=== PATIENT | female | born 1940 | race Caucasian/White ===

== ENCOUNTER 2018-10-28 16:45 | Inpatient (IN) ==
--- NOTE | 2018-10-28 20:44 | HISTORY AND PHYSICAL ---
REASON FOR ADMISSION: Persistent hypotension. HISTORY OF PRESENT ILLNESS: Ms. Lexi Escobedo is a 78-year-old, woman who was discharged from our facility 2 or 3 weeks ago for orthostatic hypotension and was diagnosed as having adrenal insufficiency. She also carries a diagnosis of COPD, hyperlipidemia, hypertension, hypothyroidism and an incidental finding of recent CT scan showing a right basal ganglia stroke. She was readmitted to our facility because she went into acute diastolic heart failure secondary to being advised to take increased salt to improve her blood pressure and concomitant use of Florinef. The patient was diuresed -10 L of fluid over the course of 3 days. For us to achieve this feat, we had to put the patient on a [place] drip during her diuresis. After achieving this diuresis, we then weaned her off the [place] drip. Even before and since weaning off [place] drip, systolic blood pressure had been running for the last 48 hours anywhere between 60 and 80 systolic. I felt that because the patient still had warm distal extremities I was pretty much under the impression that her blood pressure medications have been grossly underestimated. She had a very good femoral pulse and just of today we started measuring blood pressure from her thigh, and we have been getting very good readings, between 116 to 130 systolic. We had also increased the dose of the patient midodrine, which she was discharged with 3 weeks ago. Her stay was complicated with complaints of shortness of breath and we had started her on some breathing treatments. We had done a CT scan of the head because the patient had a syncopal episode on day 2 of her admission when for some inexplicable reason her [place] drip ran out. Her syncopal spell only lasted 5 seconds. We did a CTA of the head and neck to rule out vertebral basilar insufficiency, but there was no significant flow-limiting lesion of her four vessels and intracranial arterial vascular system. We did note an incidental basal ganglia infarct. As a consequence of this, the patient was started on aspirin and statins. Today her H and H dropped from 8 and 26 to 6 and 20. The patient has received 2 units of packed red blood cells. The patient's main complaint today was that she feels weaker than she has in the last few days and even trying to sit up from a lying position makes her feel dizzy. This also corresponded with a precipitous drop in her H and H. She still has chronic dyspnea, but it has not worsened and denies any chest pain. REVIEW OF SYSTEMS: The patient just complained this evening prior to her transfer that she is having what is considered to be some dark stools, and these were heme-positive. This may explain the precipitous drop in her H and H. The patient's reticulocyte count was 6%, which is consistent with good bone marrow turnover. Otherwise, review of systems is grossly unremarkable, and she has no other complaints other than the dizziness and weakness. ALLERGIES: No known allergies. FAMILY HISTORY: Please see the accompanying at H and P done by me less than a week ago. SOCIAL HISTORY: Please see the accompanying at H and P done by me less than a week ago. SURGICAL HISTORY: Please see the accompanying at H and P done by me less than a week ago. LABORATORY DATA: Today, BMP was within normal limits. H and H were 5.9 and 20. Her lab work is pending in [place]; however, she has some labs that were done. Echocardiogram was done, which showed EF of 55% to 60% with sclerotic aortic valve, moderate TI and moderate MR. She also had a CT of the head and neck, and findings are noted as above in my HPI. She had a CT of the chest, which showed a 1.8 cm lesion, which is suspicious for primary lung neoplasm versus metastatic disease. Her abdomen only showed some mild impaction of stool. CURRENT MEDICATIONS: Patient is on DuoNeb q.4 p.r.n., hydrocortisone 20 mg in the morning and 10 mg in the evening, Lipitor 20 mg daily, Milk of Magnesia 30 mL p.r.n., saline nasal spray q.4 p.r.n., Tylenol 650 q.6, Zofran q.4 p.r.n., aspirin 81 mg daily, but this will now be held in light of possible GI bleed, midodrine 5 mg 3 times a day. PHYSICAL EXAMINATION: VITAL SIGNS: Most recent vital signs done at 6 p.m. in [place]: Blood pressure 137/57, respiratory rate 16, temperature is 98, O2 saturation 98% on room air on 2 L. GENERAL: She is a chronically ill, elderly, woman who is thin, alert and oriented to person, place, and time with somewhat sad affect and depressed mood. HEAD: Normocephalic, atraumatic. EYES: PERRL, EOMI. She is anicteric and pale. ENT: Oropharyngeal exam is grossly normal. No oropharyngeal exudates. No central cyanosis. NECK: Supple. No JVD or carotid bruit. No thyromegaly. CHEST: Has significantly decreased air entry in both lung elizalde. CARDIOVASCULAR: First and second heart sounds are heard. No gallops. There is a 2 to 3/6 ejection systolic murmur heard in the left lateral sternal border. Rhythm is regular. ABDOMEN: Full, soft with no focal areas of tenderness. Bowel sounds are hypoactive. RECTAL: Deferred at this time. EXTREMITIES: Patient has significantly diminished distal pulses volumes, although the more proximal pulsations are full, regular and symmetrical. No edema, clubbing or peripheral cyanosis. NEUROLOGICAL: No gross focal deficits. No tremors. SKIN: Pallid, otherwise no breakdown lesions or erythema. MUSCULOSKELETAL: Exam grossly normal. Patient has some mild to moderate degree of sarcopenia. ASSESSMENT: 1. Probable gastrointestinal bleed secondary to concomitant use of aspirin for cerebrovascular accident prophylaxis and Solu-Cortef. 2. Chronic obstructive pulmonary disease, mild exacerbation. 3. Microcytic anemia, possible myelodysplastic syndrome. Cannot rule out a myelophthisic process. 4. Adrenal insufficiency. 5. Hypothyroidism. 6. Hyperlipidemia. 7. Chronic diastolic heart failure. 8. Peripheral arterial disease. 9. Reflux disease. PLAN: I will start patient on high-dose PPIs, consult GI to see. Scope patient in the morning. As I stated earlier, patient has received 2 units of packed red blood cells. We will get a baseline CBC on arrival, a BNP. Aspirin will be discontinued, and we will see if we can decrease the dose 1/2 of current dose of Solu-Cortef being that her BP is improving and stave off potential risk of fluid overload and GI bleed . The patient wasseen by Dr. Guillermina Nath less than a week ago because of her recurrent chronic macrocytic anemia. So far, workup is negative for hemolytic source. It is very probable that this may be either some yet to be diagnosed bone marrow disorder, which the patient says she was told she had many years ago. This could also be due to a nutritional deficiency. Still have copper levels pending and zinc levels pending and vitamin B1, 2 and 6 levels pending. She also needs NASEEM levels checked and methylmalonic acid level to be ordered. May suggest a flow cytometry study for lymphoproliferative disorder. Patient's incidental finding of a right upper lobe possible neoplastic process will warrant a pulmonology consult. A CEA level was drawn at [place], but this has not been resulted yet. If the patient is willing to undergo invasive procedures, she may benefit from an outpatient PET scan. The patient's blood pressure has improved. The patient's blood pressure can be falsely underestimated if using the usual sites for measuring BP. He had to use a large cuff to measure her blood pressure from her thigh to get a more accurate blood pressure. If blood pressure holds and she is orthostatic, may consider discontinuing midodrine. Baby aspirin can be restarted at a much later date following endoscopic evaluation. Addendum I reevaluated pt. again in the ICU, her BP 116/70. She still has expiratory wheezes and has increased distal pulses of the LE,but not UE. Her pallor has improved and she feels much better after transfusion. Her H/H is 10/32. Explained to her CT findings and the need for her to have rn peritoneal dialysis to see about this. S cc: MD Asia Streeter MD Heather Shah, MD MTDD
[2018-10-28] MEDS ORDERED: TYLENOL PO PRN (21:28)
[2018-10-28] MEDS ORDERED: ZOFRAN IV PRN (21:28)
[2018-10-28 21:55] LABS: BASO# 0.02 X1000 (0.0-0.2); BASO% 0.3 % (0.0-0.8); EOS# 0.12 X1000 (0.0-0.7); EOS% 1.8 % (0.0-10.0); HEMATOCRIT 32.5 % (37.0-47.0); HEMOGLOBIN 10.3 g/dL (12.0-16.0); IMM GRAN# 0.02 X1000 (0.0-0.04); IMM GRAN% 0.3 % (0.0-0.5); LYMPH# 0.89 X1000 (1.2-3.4); LYMPH% 13.1 % (20.5-51.1); MCH 30.3 PG (27-31); MCHC 31.7 g/dL (33-37); MCV 95.6 FL (81-99); MONO# 0.89 X1000 (0.11-0.59); MONO% 13.1 % (1.7-9.3); MPV 9.5 FL (7.4-10.4); NEUT# 4.86 X1000 (1.4-6.5); NEUT% 71.4 % (42.2-75.2); PLT 350 X1000 (130-400); RDW 15.6 % (11.5-14.5)
[2018-10-28 22:18] LABS: AGAP 11; ALB/GLOB RATIO 1.5; ALBUMIN 3.6 g/dL (3.5-5.0); ALKALINE PHOSPHATASE 55 U/L (32-104); BUN 12 mg/dL (8-22); CALCIUM 9.2 mg/dL (8.8-10.2); CHLORIDE 94 mmol/L (98-107); COSMO 272; CREATININE 0.5 mg/dL (0.5-0.9); ESTIMATED GFR > 60; GLUCOSE 112 mg/dL (70-104); GOT 12 U/L (10-30); GPT 9 U/L (10-36); POTASSIUM 3.4 mmol/L (3.5-5.1); SODIUM 136 mmol/L (136-145); TCO2 31 mmol/L (25-35); TOTAL BILIRUBIN 0.23 mg/dL (0.20-1.00)
[2018-10-28] MEDS: PROTONIX IV SCH (22:25)
[2018-10-28] MEDS: LIPITOR PO SCH (22:26)
[2018-10-28] MEDS: NS 1,000 ML IV SCH (22:26)
[2018-10-28] MEDS: SODIUM CHLORIDE 0.9% INJ SCH (22:26)
[2018-10-28] MEDS ORDERED: POTASSIUM CHLORIDE 20% LIQUID PO ONE (22:33)
[2018-10-28] MEDS: DUONEB (A & A) INH SCH (22:43)
[2018-10-28] MEDS: CORTEF PO SCH ×2 (22:46→23:38)
[2018-10-28] MEDS ORDERED: CORTEF PO ONE (22:55)
[2018-10-28] MEDS: PROAMATINE PO SCH (23:36)
[2018-10-29] MEDS: DUONEB (A & A) INH SCH ×4 (03:17→21:53)
[2018-10-29 06:58] LABS: HEMATOCRIT 33.6 % (37.0-47.0); HEMOGLOBIN 10.7 g/dL (12.0-16.0); MCH 30.4 PG (27-31); MCV 95.5 FL (81-99); RBC 3.52 XMIL (4.2-5.4); WBC 13.46 X1000 (4.8-10.8)
[2018-10-29 06:59] LABS: BASO# 0.03 X1000 (0.0-0.2); BASO% 0.2 % (0.0-0.8); EOS# 0.15 X1000 (0.0-0.7); EOS% 1.1 % (0.0-10.0); LYMPH% 4.5 % (20.5-51.1); MCHC 31.8 g/dL (33-37); MONO# 1.13 X1000 (0.11-0.59); MONO% 8.4 % (1.7-9.3); MPV 10.6 FL (7.4-10.4); NEUT# 11.55 X1000 (1.4-6.5); NEUT% 85.8 % (42.2-75.2); PLT 340 X1000 (130-400); RDW 15.8 % (11.5-14.5)
[2018-10-29 07:11] LABS: AGAP 10; BUN 12 mg/dL (8-22); CALCIUM 8.9 mg/dL (8.8-10.2); CHLORIDE 95 mmol/L (98-107); COSMO 275; CREATININE 0.6 mg/dL (0.5-0.9); ESTIMATED GFR > 60; GLUCOSE 97 mg/dL (70-104); MAGNESIUM 2.6 mg/dL (1.5-2.7); SODIUM 138 mmol/L (136-145); TCO2 33 mmol/L (25-35)
[2018-10-29 08:26] LABS: LYMPHS 6 % (21-51); MONO 10 % (1-9); SEGS 84 % (42-75)
[2018-10-29] MEDS: PROAMATINE PO SCH ×4 (08:44→23:02)
[2018-10-29] MEDS: CORTEF PO SCH ×2 (08:44→20:49)
[2018-10-29] MEDS ORDERED: CORTEF PO SCH (09:00)
[2018-10-29] MEDS ORDERED: XYLOCAINE-MPF 2% ONE (09:27)
[2018-10-29] MEDS ORDERED: DIPRIVAN 1% ONE (09:27)
--- NOTE | 2018-10-29 10:26 | ENDOSCOPY OPERATIVE NOTE ---
[facility] ENDOSCOPY OPERATIVE NOTE , PATIENT: Lexi Escobedo ADMISSION DATE: 10/29/2018 MR#: [id number] : 1940 [id number] EGD PROCEDURE REPORT PROCEDURE DATE: 10/29/2018 SURGEON: Yosef Juares MD STATUS: inpatient TELEVISION STATION MANAGER: PREOPERATIVE DIAGNOSIS: The patient is a 78 yr old female here for an EGD due to anemia. PROCEDURE PERFORMED: EGD w/ control of bleeding MEDICATIONS: Per Anesthesia TOPICAL ANESTHETIC: none CONSENT: The patient understands the risks and benefits of the procedure and understands that these r isks include, but are not limited to: sedation, allergic reaction, infection, perforation and/or bleeding. Alternative means of evaluation and treatment include, among others: physical exam, x-rays, and/or surgical intervention. The patient elects to proceed with this endoscopic procedure. HISORY AND PHYSICAL: 10/29/2018 function. Hand hygiene and appropriate measures for infection prevention was taken. After the risks, benefits and alternatives of the procedure were thoroughly explained, Informed consent was verified, confirmed and timeout was successfully executed by the treatment team. The patient was anesthetized with topical anesthesia and the WD82-[id number] ([id number]) endoscope was introduced through the mouth and advanced to the second portion of the duoden um. Retroflexion was performed in the stomach and revealed a hiatal hernia. The gastroscope was then slowly withdrawn and removed. ESOPHAGUS: The mucosa of the esophagus appeared normal. STOMACH: The stomach was normal. DUODENUM: A small diverticulum was found in the 2nd part of the duodenum. A small (5mm) bleeding an gioectasia was found in the 2nd part of the duodenum along the posterior sweep. Submucosal injection of 3ml of epin ephrine 1:10,000 was performed around the bleeding site and cautery applied with monopolar probe with complete hemosta sis achieved. SPECIMENS REMOVED: No ADVERSE EVENTS: There were no complications. POSTOPERATIVE DIAGNOSIS: ESOPHAGUS: The mucosa of the esophagus appeared normal. STOMACH: The stomach was normal. DUODENUM: A small diverticulum was found in the 2nd part of the duodenum. A small (5mm) bleeding an gioectasia was found in the 2nd part of the duodenum along the posterior sweep. Submucosal injection of 3ml of epin ephrine 1:10,000 was performed around the bleeding site and cautery applied with monopolar probe with complete hemosta sis achieved. RECOMMENDATIONS: Clear liquid diet Trend H/H daily, transfuse prn for goal hgb 7-8 Stop PPI Will follow with you. Please call with questions REPEAT EXAM: Yosef Juares MD eSigned: Yosef Juares MD 10/29/2018 10:25 AM cc: PATIENT NAME: Lexi Escobedo MR#: [id number]
--- NOTE | 2018-10-29 11:38 | GASTROENTEROLOGY CONSULTATION ---
DATE: 10/29/2018 REASON FOR CONSULTATION: Anemia. HISTORY OF PRESENT ILLNESS: Ms. Lexi Escobedo is a 78-year-old woman with past medical history of chronic anemia on iron therapy, CAD status post CABG 6 years ago, recent diagnosis of CVA, COPD, hyperlipidemia, hypothyroidism, adrenal insufficiency, and recent hospitalization for diastolic CHF exacerbation who presented on 10/28 with persistent hypotension in the setting of anemia. The patient was recently admitted for acute diastolic heart failure requiring aggressive diuresis -10 L with significant weight loss after presenting with right basilar ganglia stroke and heart failure in the setting of increased salt intake and Florinef treatment. The patient reports having persistent generalized weakness, dizziness, lightheadedness, and dyspnea on exertion, which she attributes to her anemia. She denies any chest pain or change in bowel habits. No diarrhea. She does report chronic constipation from oral iron therapy, which requires intermittent milk of magnesia use. She had a previous workup with EGD and colonoscopy about [address] Mckeon in [place] for anemia, which was negative. She was told that her anemia was likely secondary to a bone marrow issue, which was was evaluated by a pattern generator operator in the past. She required iron infusions regularly up until about 6 to 8 years ago, and since then she has been on oral iron. She does take aspirin daily, no NSAIDs or other blood thinners. No family history of GI malignancies. REVIEW OF SYSTEMS: As per HPI; otherwise, 12-point review of systems negative. PAST MEDICAL HISTORY: As per HPI. PAST SURGICAL HISTORY: As far as abdominal surgeries, she has had a cholecystectomy, appendectomy and oophorectomy for a tumor. FAMILY HISTORY: No family history of cancer. SOCIAL HISTORY: She is a 1 pack per day smoker up until her admission. No alcohol or drug use. MEDICATIONS: Home medications include Symbicort, Ventolin, levothyroxine, Simbrinza eyedrops, aspirin, pantoprazole, iron, Latanoprost eyedrops, ranitidine, DuoNeb. ALLERGIES: No known drug allergies. PHYSICAL EXAMINATION: Vital Signs: Temperature 97.5 degrees, heart rate of 86, respiratory rate 16, blood pressure 81/56, O2 saturation is 100% on 3 L nasal cannula. General: The patient is awake, alert, oriented, no acute distress. HEENT: Sclerae anicteric. Moist mucous membranes. Extraocular motor intact. Neck: Supple. No JVD or lymphadenopathy. Cardiac: Regular rate and rhythm. No murmurs, rubs or gallops. Lungs: Clear to auscultation bilaterally. Abdomen: Soft, nontender, nondistended. Normoactive bowel sounds. Extremities: She has two heel dressings bilaterally. No clubbing, cyanosis or edema. Neurologic: Nonfocal. LABS: White count of 13.4, hemoglobin 10.7, platelets of 340. BMP is unremarkable today. LFTs on 10/28 were normal. Apparently, prior to admission she had a hemoglobin of 6 requiring 2 units of packed red blood cells prior to admission. ASSESSMENT AND PLAN: Ms. Lexi Escobedo is a 78-year-old woman with past medical history of chronic anemia on iron therapy, who presents with persistent hypotension. She has been treated for adrenal insufficiency with steroids and had a recent admission for diastolic heart failure requiring aggressive diuresis with the help of pressors. She denies any rectal bleeding or melena. She has had a workup in the remote past including EGD and colonoscopy about 10 years ago that was negative. She does take aspirin which has been held. She was seen by Dr. Nath about a week ago for chronic macrocytic anemia and is undergoing workup for bone marrow disorder, which she says she was diagnosed with in the past. She is currently NPO and on a proton pump inhibitor twice daily. We will plan for diagnostic EGD this morning. DDx includes PUD, esophagitis, duodenitis, AVMs; less likely malignancy. She is adamant that she is not interested in diagnostic colonoscopy should her endoscopy return negative. Her blood pressure currently is borderline; however, there has been difficulty obtaining accurate readings. She is awake, alert, and non-toxic appearing. Abdomen is benign. # Acute on chronic anemia # Hypotension # CAD # Adrenal insufficiency Thank you for this consult. We will follow with you. Please call with any questions or concerns. DELMA
--- NOTE | 2018-10-29 16:34 | PROGRESS NOTE ---
DATE: 10/29/2018 SUBJECTIVE: This morning, Ms. Escobedo refers to be feeling fairly weak. She was transferred from [facility] yesterday after she blacked out. She did complain of some dark stool, and she was found to have a dropped her hemoglobin and hematocrit from about 8 to 6. She was given 2 PRBC transfusion, I understand, and she was brought in here. Over here, she has been seen by GI and has been scoped. OBJECTIVE: Vital signs: Her current vitals are blood pressure 134/90, pulse of 85, respiration 19, temperature is 98.6 degrees. General: Ms. Escobedo is a 78-year-old female. She is in bed. No distress. HEENT: Mucosa is pink and moist. Anicteric. Acyanotic. Neck: Neck is supple. Chest: Good air entry bilateral. No crepitations. No rhonchi. Cardiovascular: Regular rate and rhythm. Abdomen: Abdomen is soft. Extremities: No pedal edema. INFORMATICS ANALYST: The patient is awake, alert, and oriented. LABORATORY DATA: WBC is 13.46, hemoglobin is 10.7, platelet count of 340,000. Chemistry is also reviewed which is completely normal. CURRENT MEDICATIONS: The patient's current medications have all been reviewed. She is on hydrocortisone and midodrine. ASSESSMENT: 1. Symptomatic anemia. I understand the patient's hemoglobin and hematocrit dropped to 6, as per the history and physical from [place]. The patient was transfused 2 PRBC. Her hemoglobin and hematocrit at this point is within normal range. 2. 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 The patient is status post EGD with submucosal injection of epinephrine and cautery application with monopolar probe, with complete hemostasis achieved. The patient denies any more dark stool. 3. Hypothyroidism. We will continue with her Synthroid. 4. History of diastolic heart failure. The patient is currently euvolemic. 5. History of peripheral artery disease. Obviously patient is very vasculopathic, and this could also interfere with accurate reading of her blood pressure. 6. Adrenal insufficiency. I understand Ms. Escobedo has been hypotensive for the most part, and laboratory studies in [place] revealed that she had adrenal insufficiency. It appears that being on the steroids, her blood pressures are now a lot better. I think she will need to follow up with an endocrine to have a more comprehensive study since it appears that her thyroid is also insufficient. She probably might have a polyglandular pathology that needs to be examined more closely and thoroughly. 7. History of cerebrovascular accident right basal ganglia infarct. Clinically asymptomatic. 8. History of chronic obstructive pulmonary disease. The patient is currently not in any exacerbation. I understand from the H and P that a CT scan which was done from [place] seems to suggest that there was a 1.8 cm suspicious lesion in the lung, laterality was not mentioned in the H and P. We will get the records itself. I have called our Radiology Department to see if we can get the image itself from [place]. The CT report itself seems to suggest that there is a new evidence of a mass in the right upper lobe along the vascular bundle measuring another 1 cm in the size, and I think that this may be amenable to bronchoscopic evaluation and biopsy. We will get Pulmonary Medicine to see her, and we will also try and see if we can get the images sent from [facility]. The patient is yet to be seen by Pulmonary Medicine and Heme-Onc. cc: Haseeb Rosales MD MTDD
--- NOTE | 2018-10-29 17:15 | HEMO/ONC CONSULTATION ---
DATE: 10/29/2018 ADMITTING PHYSICIAN: Marisa Reynoso MD REQUESTING PHYSICIAN: Marisa Reynoso MD We appreciate this consult. CHIEF COMPLAINT: Iron deficiency anemia. HISTORY OF PRESENT ILLNESS: Ms. Lexi Escobedo is a pleasant, 78-year-old, female, known to Dr. Robbi Reilly with a history of iron-deficiency anemia secondary to recurrent GI bleed. The patient recently experienced a long admission to [facility] secondary to acute diastolic heart failure and fluid overload. The patient was discharged 3 weeks ago. The patient presents to [facility] with complaints of worsening weakness and dizziness. Upon evaluation the patient did have a significant drop in her hemoglobin. Hemoglobin was found to be 10.3 on admission. The patient does have a history of GI bleed and underwent EGD earlier this morning. She was found to have a bleeding angioectasia in the 2nd part of the duodenum which was injected with epinephrine. We are consulted as the patient is known to Dr. Robbi Reilly with a history of iron-deficiency anemia. PAST MEDICAL HISTORY: 1. COPD. 2. Hyperlipidemia. 3. Hypertension. 4. Hypothyroidism. 5. Iron-deficiency anemia. 6. GI bleed. 7. Congestive heart failure. FAMILY HISTORY: The patient has no family history of hematologic or oncologic disease. SOCIAL HISTORY: The patient does not use tobacco, alcohol or illicit drugs. MEDICATIONS ON ADMISSION: 1. DuoNeb. 2. Hydrocortisone. 3. Lipitor. 4. Milk of magnesia. 5. Saline nasal spray. 6. Tylenol. 7. Zofran. 8. Aspirin 81 mg. 9. Midodrine. ALLERGIES: Patient has no known drug allergies. REVIEW OF SYSTEMS: A 14 point review of systems was obtained and is negative except for mentioned in HPI. PHYSICAL EXAMINATION: General: Ms. Lexi Escobedo is a 78-year-old, female lying supine in bed in no immediate distress. Vital Signs: Temperature 98.3, blood pressure 86/65, heart rate 90. Respirations 22, O2 saturation 98% on 3 L nasal cannula O2. HEENT: Normocephalic, atraumatic. Mucous membranes are slightly pale and moist. Sclerae anicteric. Extraocular movements intact. Neck: Supple. Lungs: Clear to auscultation bilaterally. Chest expansion is equal bilaterally. Cardiovascular: S1, S2 is heard without murmur, rub or gallop. Abdomen: Nondistended. Extremities: No clubbing, cyanosis, or edema. Dermatologic: No rashes, bruises or lesions. Neurologic: The patient is awake, alert, oriented x3. She has no focal deficit. LABORATORY DATA: Hemoglobin 10.7, hematocrit 33.6, white blood cell count 13.46, platelets 340,000. Sodium 138, potassium 4.0, chloride 95, CO2 is 33, BUN 12, creatinine 0.6, glucose is 97, calcium 8.9, magnesium 2.6. ASSESSMENT AND PLAN: 1. Iron-deficiency anemia. The patient is known to Dr. Robbi Reilly, with a history of iron deficiency anemia related to recurrent gastrointestinal bleed. 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 We will check iron studies and replete if necessary. 2. 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 3. Chronic obstructive pulmonary disease with mild exacerbation per hospitalist. 4. We will follow along with you and make further recommendations pending outcomes. The above reflects the history, exam, assessment and plan of Dr. Hart. Dictated by JF Wharton for Perry Hart MD cc: JF Wharton MD
--- NOTE | 2018-10-29 19:42 | CONSULTATION ---
DATE OF CONSULTATION: 10/29/2018 REQUESTING PROVIDER: Dr. Farrar. REASON FOR CONSULTATION: Possible right upper lobe mass. HISTORY OF PRESENT ILLNESS: This is a 78-year-old female with a medical history of COPD, tobacco abuse, hyperlipidemia, hypertension, hypothyroidism, iron deficiency anemia, GI bleed, congestive heart failure, peripheral arterial disease, adrenal insufficiency, and history of right basal ganglia stroke. She has been admitted to the [facility] since last Sunday with persistent hypotension. She was transferred to ICU in our facility last night apparently after she blacked out, likely secondary to symptomatic anemia. She received 2 units of red blood cell transfusion before transfer. CT chest, abdomen, and pelvis with and without contrast, on 10/28/2018, revealed a 1.8 cm lesion centrally in the right upper lobe, suspicious for malignancy, either primary or potentially metastatic, with bilateral pleural effusions, COPD with pulmonary fibrotic changes, stable in appearance, and senescent changes, otherwise relatively stable. The patient currently is lying in bed with no acute distress noted. She is on nasal cannula at 3 L. Her sister is at the bedside. She is status post EGD with supple mucosal injection of epinephrine and cautery application with monopolar probe, with complete hemostasis achieved. She reports that she had chronic liquid dark stools which, per patient, is due to liquid diet she has been on for years. She reports generalized weakness, dizziness, dyspnea on exertion, chronic constipation which, per patient, is due to iron supplement and some mild chronic cough which is mainly dry. She reports no chest pain, palpitation, fever, chill, or wheezing. PAST MEDICAL HISTORY: 1. COPD, on nocturnal oxygen for a long time; on Ventolin, p.r.n. DuoNeb, and Symbicort b.i.d. 2. Tobacco abuse. 3. Hyperlipidemia. 4. Hypertension. 5. Hypothyroidism. 6. Iron deficiency anemia. 7. Gastrointestinal bleeding. 8. Congestive heart failure, diastolic. 9. Peripheral arterial disease. 10. Adrenal insufficiency, recently diagnosed. 11. History of right basal ganglia stroke. PAST SURGICAL HISTORY: 1. Abdominal surgeries. 2. Cholecystectomy. 3. Appendectomy. 4. Oophorectomy for tumor. FAMILY HISTORY: Positive for heart problems and diabetes. Reports no history of cancer. SOCIAL HISTORY: The patient smokes 1 pack per day of cigarettes until her admission to [facility]. She started smoking at the age of 14. She reports no history of alcohol or illicit drug use. ALLERGIES: Codeine. REVIEW OF SYSTEMS: A 10-point review of systems was conducted and the pertinent is listed within the HPI, otherwise noncontributory. PHYSICAL EXAMINATION: Vital Signs: Temperature 98.3, blood pressure 160/66, pulse 86, respiratory rate 17, oxygen saturation 97% on nasal cannula at 3 L. General: Lying in bed with no acute distress noted. The patient's sister is at the bedside. HEENT: Atraumatic, normocephalic. Trachea midline. Mucosa pink and moist. Respiratory: Even and unlabored. Symmetrical excursion. Auscultation revealed prolonged expiratory phase with bilateral expiratory wheezing. Cardiovascular: Regular rate and rhythm. Gastrointestinal: Soft, nontender, nondistended. Normoactive bowel sounds in all 4 quadrants. Extremities: No pedal edema. No cyanosis. No clubbing. Dorsalis pedis 2+ bilaterally. Neurologic: Alert and oriented x3. Speech fluent. Follows commands. LAB DATA: White blood cells 13.46, hemoglobin 10.7, hematocrit 33.6, platelets 340,000. Sodium 138, potassium 4.0, chloride 95, carbon dioxide 33, BUN 12, creatinine 0.6, glucose 97. ASSESSMENT: This is a 78-year-old female, with a medical history of chronic obstructive pulmonary disease, tobacco abuse, hyperlipidemia, hypertension, hypothyroidism, iron deficiency anemia, gastrointestinal bleeding, congestive heart failure, peripheral arterial disease, adrenal insufficiency, and history of right basal ganglia stroke. She was transferred from [facility] last night with symptomatic anemia, hypertension, and possible right upper lobe lung mass. 1. Acute on chronic anemia, status post esophagogastroduodenoscopy by Dr. Juares this morning. 2. Shock. Initial blood pressure of 86/65, currently improved. 3. Chronic obstructive pulmonary disease, with some exacerbation. 4. Tobacco abuse. The patient was a daily smoker until her admission to [facility] on 10/23/2018. 5. Right upper lobe 1.8 cm lesion, suspicious for malignancy, with bilateral pleural effusions. 6. Pulmonary fibrotic changes. PLAN: 1. Continue supplemental oxygen. 2. Continue steroid and bronchodilators. Will consider antibiotic. 3. Follow up with CBC and BMP. Consider chest x-ray and ABG if indicated. 4. Consider outpatient PET scan. 5. Daily smoking cessation education. Currently patient states that she is ready to quit smoking. 6. Continue gastrointestinal and deep venous thrombosis prophylaxis. 7. Further recommendations pending hospital course. Thank you for the courtesy of this consult. Dictated by JF Shanks for Lisy Barron MD cc: JF Shanks MD [facility]
[2018-10-29] MEDS: LIPITOR PO SCH (20:50)
[2018-10-29] MEDS: PROTONIX IV SCH (23:03)
[2018-10-29] MEDS: SODIUM CHLORIDE 0.9% INJ SCH (23:04)
[2018-10-29] MEDS: NS 1,000 ML IV SCH (23:04)
[2018-10-30] MEDS: DUONEB (A & A) INH SCH ×4 (03:32→22:12)
[2018-10-30 04:18] LABS: BASO# 0.03 X1000 (0.0-0.2); BASO% 0.4 % (0.0-0.8); EOS# 0.17 X1000 (0.0-0.7); EOS% 2.1 % (0.0-10.0); HEMATOCRIT 34.5 % (37.0-47.0); HEMOGLOBIN 10.7 g/dL (12.0-16.0); LYMPH# 0.79 X1000 (1.2-3.4); LYMPH% 9.7 % (20.5-51.1); MCH 29.8 PG (27-31); MCV 96.1 FL (81-99); MONO% 8.6 % (1.7-9.3); MPV 9.9 FL (7.4-10.4); NEUT# 6.47 X1000 (1.4-6.5); NEUT% 79.2 % (42.2-75.2); PLT 343 X1000 (130-400); RBC 3.59 XMIL (4.2-5.4); RDW 15.2 % (11.5-14.5); WBC 8.16 X1000 (4.8-10.8)
[2018-10-30 04:39] LABS: IRON SATURATION 8 %; TIBC 370 ug/dL; TOTAL IRON 31 ug/dL (49-151); UNBOUND IRON 339 ug/dL (112-346)
[2018-10-30 05:03] LABS: AGAP 13; BUN 11 mg/dL (8-22); CHLORIDE 99 mmol/L (98-107); COSMO 275; CREATININE 0.5 mg/dL (0.5-0.9); ESTIMATED GFR > 60; GLUCOSE 95 mg/dL (70-104); POTASSIUM 4.6 mmol/L (3.5-5.1); SODIUM 138 mmol/L (136-145); TCO2 26 mmol/L (25-35)
[2018-10-30 05:04] LABS: ALBUMIN 3.5 g/dL (3.5-5.0); CALCIUM 8.4 mg/dL (8.8-10.2); PHOSPHORUS 3.8 mg/dL (2.7-4.5)
[2018-10-30 05:13] LABS: CALCIUM 8.2 mg/dL (8.8-10.2); PHOSPHORUS 3.7 mg/dL (2.7-4.5)
[2018-10-30 05:20] LABS: FERRITIN 36 ng/mL (13-150)
[2018-10-30] MEDS: PROAMATINE PO SCH (09:36)
[2018-10-30] MEDS: VENOFER 300 MG in NS 250 ML IV SCH (09:36)
[2018-10-30] MEDS: CORTEF PO SCH ×2 (09:36→21:13)
--- NOTE | 2018-10-30 12:32 | PROGRESS NOTE ---
DATE: 10/30/2018 SUBJECTIVE: This morning, Ms. Escobedo refers to be doing a whole lot better. Denies any new complaints. No dizziness. OBJECTIVE: Vital signs: Blood pressure is 119/62, pulse of 84, respiration is 16, temperature 97.6 degrees. General: Ms. Escobedo is a 78-year-old female. She is in bed in no distress. HEENT: Mucosa is pink and moist. Anicteric. Acyanotic. Neck: Supple. Chest: Good air entry bilaterally. Few crackles posteriorly. Cardiovascular: Regular rate and rhythm. Abdomen: Soft, nontender. Bowel sounds present. Extremities: No pedal edema. Central nervous system: Patient is awake, alert, and oriented. LABORATORY DATA: Hemoglobin is 10.7, same as yesterday. Rest of CBC is unremarkable. Chemistry is completely within normal range. Iron is remarkably deficient. ASSESSMENT: 1. Symptomatic anemia. Patient is status post 2 PRBC transfusion. Hemoglobin and hematocrit is stable. 2. 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 Patient is status post EGD with endoscopic therapy. Hemoglobin this morning is stable and patient is not having any more dark stools. 3. Hypothyroidism. Patient is on Synthroid. 4. History of diastolic heart failure. Patient currently seems euvolemic. 5. History of peripheral vascular disease. 6. Adrenal insufficiency. Patient is on hydrocortisone and has been advised to follow with Endocrine. 7. History of cerebrovascular accident with right basal ganglia infarct. Currently no motor deficit on clinical exams. 8. History of chronic obstructive pulmonary disease, currently not in exacerbation. 9. A right upper lobe 1 cm lesion. The patient has been evaluated by Pulmonary Medicine and I think the recommendation is for outpatient PET scan and workup. 10. Iron deficiency, most likely due to chronic gastrointestinal bleed. PLAN: In general, I think Ms. Escobedo is a lot better. She is normotensive. She is not symptomatic. We are going to transfer her from the ICU to the medical floor, get her to walk around, get the Estrada catheter out. She has been started on a regular diet today. If she continues to be asymptomatic with stable hemoglobin and hematocrit in the morning, I think we will be able to discharge her. cc: Haseeb Rosales MD
[2018-10-30 13:35] LABS: INR 1.08; PROTIME 14.1 Seconds (11.0-16.0); PTT 32.7 Seconds (22.3-41.8)
--- NOTE | 2018-10-30 15:55 | Diag Imaging Result Doc PS360 ---
EXAM: CHEST-2 VIEWS 10/30/2018 HISTORY: POST RIGHT U/S THORACENTESIS TECHNIQUE: Inspiratory expiratory chest COMMENT: There is no evidence of pneumothorax. There is no appreciable right pleural fluid collection. There is a larger left pleural effusion and atelectasis versus pneumonia in the left lower lobe. IMPRESSION: No evidence of pneumothorax. Electronically signed by oRc Antonio 10/30/2018 3:53 PM
--- NOTE | 2018-10-30 16:10 | Diag Imaging Result Doc PS360 ---
EXAM: US THORACENTESIS W/IMAGE GUIDE 10/30/2018 HISTORY: Diagnostic, rule out malignancy TECHNIQUE: Right ultrasound-guided thoracentesis COMMENT: The risks and benefits including the possibility of bleeding, infection, reaction to lidocaine or pneumothorax was discussed with the patient and she agreed to the procedure. Following sterile preparation the skin posterior laterally and administration 1% lidocaine to the skin and deeper soft tissues, a 20-gauge needle was inserted into the inferior lateral pleural space under ultrasonographic guidance and 10 mL of straw-colored fluid was aspirated. This was sent to the laboratory. There are no immediate complications. IMPRESSION: Successful ultrasound-guided thoracentesis. Electronically signed by Roc Antnoio 10/30/2018 4:08 PM
--- NOTE | 2018-10-30 16:38 | Diag Imaging Result Doc PS360 ---
EXAM: CT THORAX W/O CONTRAST HISTORY: High resoltion for navigtional bronch TECHNIQUE: Images were obtained from the lung apices through bases as per standard protocol. This exam was performed using automated exposure control, adjustment of mA or kV according to patient size, and/or use of iterative reconstruction technique. COMPARISON: 10/28/2018. FINDINGS: Mediastinum: There is cardiomegaly with median sternotomy wires.. No pericardial effusion is appreciated. No pathologically enlarged lymph nodes are identified on this noncontrasted study.. No aortic aneurysm. There is atherosclerotic calcification. No hilar lymphadenopathy. Calcified left hilar lymph nodes Airway: No large airway obstruction. No focal mass. Pulmonary parenchyma: There is marked pulmonary emphysema. There is a 1.6 cm noncalcified soft tissue mass posterior right upper lobe. Pleura: There are bilateral pleural effusions left greater than right. Bones: No fracture or destructive lesion is identified. Abdomen: There is a apparent 1 cm stone in the distal common bile duct. Pneumobilia. Possible interval placement of biliary stent. Correlate clinically. Consider abdominal ultrasound. IMPRESSION: 1.1.6 cm mass posterior right upper lobe. 2.Pulmonary emphysema. 3.Bilateral pleural effusions and atelectasis left greater than right. 4.Common bile duct stone. Correlate clinically. . Electronically signed by Radha Villarreal 10/30/2018 4:35 PM
--- NOTE | 2018-10-30 16:43 | PROVIDER PROGRESS NOTE ---
Progress Note S: No acute overnight events. No abdominal pain, rectal bleeding, N/V, melena. O: Last Vital Signs Temp 97.9 F 10/30/18 14:59 Pulse 92 H 10/30/18 14:59 Resp 19 10/30/18 14:59 BP 154/74 10/30/18 14:59 Pulse Ox 96 10/30/18 14:59 Height 5 ft 6 in Weight 130 lb 4.8 oz GEN: awake, alert, NAD HEENT: anicteric, MMM NECK: supple, no jvd PULM: CTAB, no wheezing ABD: soft NT/ND, NABS, no rebound or guarding CV: RRR, no murmurs NEURO: nonfocal LABS: 10/30/18 10/30/18 10/30/18 03:50 03:50 03:50 WBC Hgb Plt Count Sodium Potassium Chloride Carbon Dioxide BUN Creatinine Iron 31 L TIBC 370 % Saturation 8 Unsat Iron Binding 339 Ferritin 36 Albumin Vitamin B12 689 Folate 37.3 H 10/30/18 10/30/18 03:50 03:50 WBC 8.16 Hgb 10.7 L Plt Count 343 Sodium 138 Potassium 4.6 Chloride 99 Carbon Dioxide 26 BUN 11 Creatinine 0.5 Iron TIBC % Saturation Unsat Iron Binding Ferritin Albumin 3.5 Vitamin B12 Folate EGD 10/29 ESOPHAGUS: The mucosa of the esophagus appeared normal. Small hiatal hernia STOMACH: The stomach was normal. DUODENUM: A small diverticulum was found in the 2nd part of the duodenum. A small (5mm) bleeding angioectasia wasfound in the 2nd part of the duodenum along the posterior sweep. Submucosal injection of 3ml of epinephrine 1:10,000 was performed around the bleeding site and cautery applied with monopolar probe with complete hemostasis achieved. A/P: Ms. Lexi Escobedo is a 78-year-old woman with past medical history of chronic anemia on iron therapy, adrenal insufficiency who presented with persistent hypotension. EGD yesterday showed bleeding duodenal AVM s/p epinephrine and cautery. Hgb stable. No melena. # Bleeding duodenal AVM: hgb stable; once daily PPI; advance diet as tolerated # Acute on chronic iron deficiency anemia: received IV iron today # Hypotension: normotensive # CAD: no CP # Adrenal insufficiency: on steroids Will follow with you. Please call with questions
[2018-10-30 16:45] LABS: PH BODY FLUID 7.5; SPECIMEN PLEURAL FLUID
[2018-10-30 16:53] LABS: AMYLASE BODY FLUID 23 U/L; BODY FLUID SOURCE PLEURAL FLUID; TOTAL PROT BODY FLUID < 0.2 g/dL; WBC BF 21 /cumm
[2018-10-30 16:55] LABS: MONOS 90 %; POLYS 10 %
[2018-10-30 17:03] LABS: GLUCOSE BODY FLUID < 2 mg/dL; LDH BODY FLUID < 10 U/L
[2018-10-30] MEDS: LIPITOR PO SCH (21:12)
[2018-10-31] MEDS: DUONEB (A & A) INH SCH ×3 (04:47→16:05)
[2018-10-31] MEDS ORDERED: PROTONIX PO SCH (07:00)
--- NOTE | 2018-10-31 07:12 | PROVIDER PROGRESS NOTE ---
Progress Note Pulmonary additional note: I reviewed CT images and shared with patient and her sister. They agreed to thoracentesis for cytology. The pulmonary nodule is in a position that is difficult for CT biopsy as discussed with Dr. Antonio. He advised to do HRCT to re-construct for navigational bronchoscopy to see from images how accessible is this nodule with broonchoscopy. If this is not feasible, another option is resection biopsy before or after PET. Options were discussed thoroughly with patient and her sister.
[2018-10-31] MEDS: VENOFER 300 MG in NS 250 ML IV SCH (08:25)
[2018-10-31] MEDS: CORTEF PO SCH (08:25)
[2018-10-31] MEDS ORDERED: LASIX IV ONE (08:39)
[2018-10-31] MEDS ORDERED: ASPIRIN PO SCH (09:00)
[2018-10-31] MEDS ORDERED: SYNTHROID PO SCH ×2 (09:00→13:00)
[2018-10-31] MEDS ORDERED: FEOSOL LIQUID PO SCH (09:00)
[2018-10-31] MEDS: NEURONTIN PO SCH ×2 (12:58→14:57)
[2018-10-31] MEDS ORDERED: LASIX ONE (13:18)
[2018-10-31 17:01] VITALS: BP 114/57
--- NOTE | 2018-10-31 20:18 | GASTROENTEROLOGY PROGRESS NOTE ---
DATE: 10/31/2018 PRIMARY CARE: JF Mcgrath. SUBJECTIVE: Patient was lying in bed. Her daughter present at bedside. Patient currently getting nebulizer treatment. She denies any nausea or vomiting. She had a formed stool yesterday which was reported as black and tarry. She denies any nausea, vomiting, vomiting blood. OBJECTIVE: Vital Signs: Temperature 98.4 degrees, pulse of 69, respiratory rate of 14, blood pressure 114/45, saturating 97% on 3 L nasal cannula. Body weight of 138 pounds 5 ounces. BMI of 22.3 kg. General: Thinly built, lying in bed, in no acute distress. HEENT: Pale conjunctivae. No icterus. Neck: Supple. Abdomen: Soft, nontender, nondistended. No guarding or rebound. Extremities: No cyanosis, clubbing. Neurologic: She is alert, awake, oriented x3. LABS: Hemoglobin and hematocrit are 10.7 and 34.5, white count of 8.1, platelet count of 343,000. INR 1.08, PT of 14.1, PTT of 32.7. Potassium 4.6, chloride 99, bicarb 23, anion gap 13, BUN of 11, creatinine 0.5, glucose of 95, calcium is 8.4, phosphorus 3.8, magnesium 2.6, iron of 31, TIBC 370, percent saturation 8, ferritin of 36. AST 12, ALT 9, alkaline phosphatase total protein 6, albumin of 3.5, B12 of 689, folate of 37.3. PTH is 79. Pleural fluid showed pH of 7.5, white cells 21, and 10% polymorphonuclear white cells. LDH was less than 10. Pleural fluid is showing no growth. Chest CT done yesterday showed 1.6 cm mass in the posterior right upper lobe, pulmonary emphysema, bilateral pleural effusions, atelectasis left greater than right, common bile duct stone. Correlate clinically. There is a stone in the common bile duct measuring 1 cm and she has pneumobilia. She has possible interval placement of biliary stent. IMPRESSION AND PLAN: 1. Chronic anemia for many years. 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 This was treated with epinephrine and cautery successfully. Her hematocrit is stable. We will continue to follow hemoglobin and hematocrit and transfuse as needed. She has been followed up by Dr. Guillermina Nath as an outpatient. She is also being consulted as an inpatient. 2. She will be on iron repletion per the primary team, and this has helped her anemia. 3. Adrenal insufficiency. She has been treated with steroids. 4. History of diastolic heart failure, requiring aggressive diuresis in the recent past. 5. Her last esophagogastroduodenoscopy and colonoscopy were done a couple of years ago with Dr. Mckeon at [place] which, according to the patient's family, was negative. 6. Dark stools. This is likely secondary to ferrous sulfate which she is on 440 mg p.o. b.i.d. This could also signify internal bleeding for possible other arteriovenous malformations in the small bowel. She may benefit from repeating colonoscopy as an outpatient and if colonoscopy is negative, she may need video capsule endoscopy. 7. Chronic obstructive pulmonary disease and emphysema. She is on albuterol ipratropium nebulizer. Patient was a former smoker. She quit smoking a few months ago. 8. Hypothyroidism, on Synthroid. 9. Adrenal insufficiency. Continues on hydrocortisone 10 mg daily and hydrocortisone 5 mg at bedtime. 10. Common bile duct stone noted on the CT of the chest. Abdominal ultrasound has been ordered by Dr. Rosales. Her liver enzymes are normal. This could be chronic stone. If ultrasound confirms the presence of common bile duct stone, then she may need endoscopic retrograde cholangiopancreatography. 11. The above plans discussed with patient and family at bedside. All questions answered. Please call us with any further questions. cc: MD Asia Davis MD [facility]
--- NOTE | 2018-11-01 19:03 | DISCHARGE SUMMARY ---
ADMISSION DATE: 10/28/2018 DISCHARGE DATE: 10/31/2018 DISPOSITION: Home. FOLLOWUP: Her followup will be: 1. Dr. Barron. 2. Dr. Juares. 3. [place]. 4. Dr. Hart. 5. [employer] in [place]. CONSULTATIONS DURING THIS ADMISSION: 1. GI was consulted. The patient was seen by Dr. Juares. 2. Pulmonary Medicine was consulted. The patient was seen by Dr. Barron. 3. Hematology was consulted. The patient was seen by Dr. Hart. INVASIVE PROCEDURES DONE DURING THIS ADMISSION: 1. Esophagogastroduodenoscopy was done by Dr. Juares, which revealed a bleeding angiectasia in the 2nd part of the duodenum. This was treated endoscopically. 2. A thoracentesis was also done where 10 mL of straw-colored fluid was aspirated just for diagnostic purposes. ADMISSION DIAGNOSES: 1. Probable probably gastrointestinal bleed. 2. Chronic obstructive pulmonary disease. 3. Microcytic anemia. 4. Adrenal insufficiency. DIAGNOSES AT THE TIME OF DISCHARGE: 1. Symptomatic anemia on presentation with hemoglobin reported to be in the 5 range in outside facility. Patient was transfused 2 packed red blood cells. Hemoglobin became stabilized. 2. 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 The patient underwent esophagogastroduodenoscopy with endoscopic therapy. 3. Hypothyroidism. The patient is on Synthroid. 4. Mild fluid overload secondary to diastolic heart failure, improved. 5. History of peripheral vascular disease. 6. Recently diagnosed adrenal insufficiency. Patient has been started on hydrocortisone. She has been advised to follow up with Endocrine in [place]. 7. History of cerebrovascular accident in the right basal ganglia. No current motor deficit. 8. History of chronic obstructive pulmonary disease, currently not in exacerbation. 9. A right upper lobe 1 cm lesion concerning for malignancy. The patient has been evaluated by Pulmonary Medicine, and they will follow up outpatient. 10. Iron deficiency secondary to chronic gastrointestinal bleed. 11. Pulmonary edema with pleural effusion, most likely due to diastolic heart failure and fluid resuscitation therapy when the patient became hypotensive. 12. Hypotension due to adrenal insufficiency, resolved. 13. Possible common bile duct stone. An ultrasound was ordered to visualize this better; however, Ms. Escobedo declined to want to do that. We have advised that she follows up with Dr. Juares on that. Currently, she denies any pain. She is not jaundiced. She does not have any fever. DISCHARGE MEDICATIONS: 1. Symbicort. 2. Levothyroxine 50 mcg p.o. daily. 3. Aspirin 81 mg daily. 4. Pantoprazole 40 mg p.o. daily. 5. Iron sulfate. 6. Ranitidine 150 b.i.d. 7. Gabapentin 100 mg p.o. every 8 hours. 8. Hydrocortisone 5 mg every night at bedtime and 10 mg in the morning. 9. Atorvastatin 20 mg every night at bedtime. 10. Pantoprazole 40 mg p.o. daily. PRESENTING COMPLAINT: Persistent hypotension. HISTORY OF PRESENTING COMPLAINT: Ms. Escobedo is a 78-year-old female who was admitted to [facility] about 1 week ago, was found out to be adrenal insufficient as a cause of her hypotension. She was started on Florinef. However, at home, she continued to be hypotensive, so she came back. During the hospital course, she was found to be remarkably anemic, so she was transferred here for a higher level of care. HOSPITAL COURSE: Ms. Escobedo was initially admitted to the ICU, was started on IV fluids. She had already been transfused in [place] before coming. She was hemodynamically stable by the time she came here. She was sent to OR. Endoscopy was done. The patient was found to have a bleeding angioectasia in the second portion of duodenum. Endoscopic intervention was done. Please refer to the details of the intervention in the GI report. Postoperatively, Ms. Escobedo's hemoglobin and hematocrit remained stable, and she did not have any more overt signs of GI bleed. She was transferred from the ICU to the medical floor. Pulmonary Medicine was consulted because of a lesion in the right lung. The patient was seen by Dr. Barron. From his evaluation, he thought that it will be extremely difficult to get a biopsy either endoscopically or CT- guided, so he recommends to do an outpatient followup with possible PET scan. During the hospital course, Ms. Escobedo was also found to have a possible small CBD stone, so an ultrasound was ordered, but she declined to want to do that. She prefers to follow this up with GI, which is okay with us because she does not want to do any further testing or any further interventions in the hospital. Possible complications have all been addressed with her. And she voiced understanding. Ms. Escobedo carries a potential diagnosis of adrenal insufficiency. She also has hypothyroidism. Her PTH is minimally elevated. There is the concern that she could have a polyglandular disorder, so we have advised that she follows up with Endocrine on outpatient basis. All the discharge instructions have been discussed with Ms. Escobedo, and she voiced understanding. TIME SPENT: Time spent for discharge is 47 minutes. At the time of the discharge, Ms. Escobedo's vital signs are stable. Blood pressure is 114/57, pulse of 87 respiration is 18, temperature 98.2 degrees. cc: Haseeb Rosales MD [facility]
== END 2018-10-31 18:27 | disposition home health service (06) | DRG 377 ==
LOC: SUATTDRO 16:45 → DIRADM 16:45 → ICU 21:24 → 3N 10-30 14:22
PROVIDERS: ATTEND Internal Medicine
PROC: EN.HEAT (2018-10-29 09:44)